=== PATIENT | male | born 1980 | race Caucasian/White ===

== ENCOUNTER 2017-06-26 05:43 | Day surgery (SDC) | payer OTHER ==
[2017-06-26] MEDS ORDERED: ACETAMINOPHEN 500 MG TAB PO ONE (05:58)
[2017-06-26] MEDS ORDERED: GABAPENTIN 300 MG CAP PO ONE (05:58)
[2017-06-26] MEDS ORDERED: ceFAZolin 2 GM/SWFI 2 GM/20 ML SYR IVP ONE (05:58)
[2017-06-26] MEDS ORDERED: LR 1,000 ML IV ONE (05:59)
[2017-06-26] MEDS ORDERED: LIDOCAINE 1% 2 ML INJ ID PRN (05:59)
--- NOTE | 2017-06-26 06:31 | PDHPUP ---
History & Physical Update H&P update statement: This history and physical update is based on an assessment of the patient which was completed after admission or registration (within 24 hours), but prior to the surgery/procedure. H&P update: H&P reviewed & patient examined, no change in patient's condition since H&P completed
[2017-06-26] MEDS ORDERED: BUPIVACAINE 0.25% 30 ML SDV ONE ×2 (06:44→08:01)
[2017-06-26] MEDS ORDERED: CHLORHEXIDINE GLUC HIBICLENS 118 ML BTL TP ONE (06:44)
[2017-06-26] MEDS ORDERED: DEPO METHYLPREDNISOLONE 40 MG/ML SDV ONE (06:45)
[2017-06-26] MEDS ORDERED: BACITRACIN 50,000 UNITS/10 ML SYR IRR ONE (06:45)
[2017-06-26] MEDS ORDERED: THROMBIN (BOVINE) 5,000 UNIT VIAL TP ONE (06:45)
--- NOTE | 2017-06-26 07:01 | PDANEPAE ---
ANE History of Present Illness 36 year old male for lumbar discectomy. ANE Past Medical History - Cardiovascular History Hx Hypertension: No Hx Arrhythmias: No Hx Chest Pain: No Hx Coronary Artery / Peripheral Vascular Disease: No Hx CHF / Valvular Disease: No Hx Palpitations: No - Pulmonary History Hx COPD: No Hx Asthma/Reactive Airway Disease: No Hx Recent Upper Respiratory Infection: No Hx Oxygen in Use at Home: No Hx Sleep Apnea: No Sleep Apnea Screening Result - Last Documented: Positive - Neurologic History Hx Cerebrovascular Accident: No Hx Seizures: No Hx Dementia: No - Endocrine History Hx Diabetes: No Hypothyroid: No Hyperthyroid: No Obesity: mild - Renal History Hx Renal Disorders: No - Liver History Hx Hepatic Disorders: No - Neurological & Psychiatric Hx Hx Neurological and Psychiatric Disorders: No - Cancer History Hx Cancer: Yes Cancer History Comment: 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 RT KNEE SCOPE 2015. BONE MARROW HARVEST 2000. AND TRANSPLANT. MEDIASTINAL BX 1999 ANE Review of Systems Review of systems is: negative Review of Systems: - Exercise capacity Exercise capacity: >=4 METS METS (RN): 5 METS ANE Patient History - Allergies Allergies/Adverse Reactions: No Known Allergies Allergy (Unverified 02/08/14 16:13) - Home Medications Home medications: home medication list seen and reviewed Home Medications: IBUPROFEN PRN 06/18/17 [Last Taken 06/18/17] - NPO status NPO Status: no food or drink >8 hours NPO Since - Liquids (Date): 06/25/17 NPO Since - Liquids (Time): 22:00 NPO Since - Solids (Date): 06/25/17 NPO Since - Solids (Time): 21:00 - Anes Hx Anes Hx: post operative nausea and vomiting - Smoking Hx Smoking Status: Never smoked Marijuana use: No - Alcohol Use Alcohol Use: Rarely - Family Anes Hx Family Anes Hx: neg - N/A ANE Labs/Vital Signs - Vital Signs Vital Signs: reviewed preoperatively; see RN documention for details Blood Pressure: 117/75 Heart Rate: 67 Respiratory Rate: 18 O2 Sat (%): 95 Height: 182.88 cm Weight: 122.47 kg ANE Physical Exam - Airway Neck exam: FROM Mallampati Score: Class 1 Mouth exam: normal dental/mouth exam, hodges - Pulmonary Pulmonary: no respiratory distress - Cardiovascular Cardiovascular: regular rate and rhythym - ASA Status ASA Status: II ANE Anesthesia Plan Anesthesia Plan: general endotracheal anesthesia Total IV Anesthesia: No
[2017-06-26] MEDS ORDERED: MIDAZOLAM 2 MG/2 ML VIAL IVP ONE (07:03)
[2017-06-26] MEDS ORDERED: REMIFENTANIL HCL 1 MG VIAL ONE ×2 (07:07→08:45)
[2017-06-26] MEDS ORDERED: fentaNYL 100 MCG/2 ML INJ ONE ×2 (07:08→10:05)
[2017-06-26] MEDS ORDERED: PROPOFOL/EMULSION 500 MG/50 ML BOTTLE IV ONE ×2 (07:08→08:44)
[2017-06-26] MEDS ORDERED: PROPOFOL 200 MG/20 ML VIAL ONE (07:08)
[2017-06-26] MEDS ORDERED: SCOPOLAMINE HYDROBROMIDE 1 MG/3 DAYS PATCH TD SCH (07:15)
[2017-06-26] MEDS ORDERED: LIDOCAINE 2% 5 ML SDV ONE (07:16)
[2017-06-26] MEDS ORDERED: ROCURONIUM 50 MG/5 ML VIAL ONE (07:16)
[2017-06-26] MEDS ORDERED: ONDANSETRON 4 MG/2 ML VIAL ONE ×2 (07:20→11:19)
[2017-06-26] MEDS ORDERED: DEXAMETHASONE 4 MG/ML VIAL ONE (07:20)
[2017-06-26] MEDS ORDERED: LR 500 ML IV PRN (08:35)
[2017-06-26] MEDS ORDERED: NALOXONE HCL 0.4 MG/ML INJ IVP PRN (08:35)
[2017-06-26] MEDS ORDERED: HYDROmorphONE/DILAUDID 1 MG/ML INJ IVP PRN (08:35)
[2017-06-26] MEDS ORDERED: OXYCODONE/APAP 5/325 TAB PO PRN (08:35)
[2017-06-26] MEDS ORDERED: ONDANSETRON 4 MG/2 ML VIAL IVP PRN (08:35)
[2017-06-26] MEDS ORDERED: PHENYLEPHRINE HCL 100 MCG/ML SYR IVP PRN (08:35)
[2017-06-26] MEDS ORDERED: epHEDrine SULFATE 10 MG/ML SYR IVP PRN (08:35)
[2017-06-26] MEDS ORDERED: SUGAMMADEX SODIUM 200 MG/2 ML VIAL IVP ONE (08:41)
--- NOTE | 2017-06-26 10:01 | SOAPPROG ---
SOAP Progress Note Assessment/Plan: Post Op Visit: S: Awake and alert. Pt with expected lower back pain O: AFVSS/PERRLA/EOMI no droop CN 2-12 grossly intact +lt touch 5/5 BUE/BLE = CDI A/P: 36 yo male that is s/p left L4/5 CONSTANCE -orders in place -call with any questions or concerns -dc once criteria is met -pt seen by Dr Andre as well 06/26/17 09:58 Objective: Vital Signs Temp Pulse Resp BP Pulse Ox 36.6 C 67 18 117/75 95 06/26/17 07:02 06/26/17 07:02 06/26/17 07:02 06/26/17 07:02 06/26/17 07:02 ICD10 Worksheet Patient Problems: Problems Problem Status Onset Lumbar herniated disc Acute Lumbar radicular pain Acute Lumbar stenosis Acute - ICD10 Problem Qualifiers (1) Lumbar stenosis (2) Lumbar radicular pain (3) Lumbar herniated disc
[2017-06-26] MEDS: fentaNYL 100 MCG/2 ML INJ IVP PRN ×2 (10:05→10:31)
--- NOTE | 2017-06-26 10:51 | GOP ---
[f rep st] OPERATIVE REPORT DATE OF OPERATION: SURGEON: Keith Andre MD MANAGER TRANSPORT: Leonardo Saez PA-C. PREOPERATIVE DIAGNOSIS: Large herniated disk at L4-5 with left L5 radiculopathy. POSTOPERATIVE DIAGNOSIS: Large herniated disk at L4-5 with left L5 radiculopathy. PROCEDURE PERFORMED: Left L4-5 microdiskectomy. FINDINGS: ESTIMATED BLOOD LOSS: 25 mL. DESCRIPTION OF PROCEDURE: The patient was taken to the operating room, placed in the supine position , and general anesthesia was begun. He was flipped prone onto a Brandon frame. Care was taken to pad all points of contact. His back was sterilely prepped and draped in the usual fashion. A 1-inch in cision (2.5 cm incision) was made in the midline above the L4-5 interspace. The subcutaneous tissue was dissected using Bovie cautery down to the fascia, and a left-sided subperiosteal dissection was m eloy down to the left L4-5 lamina. A self-retaining retractor was placed. The operating microscope w as introduced. A localizing x-ray was taken. We drilled a left L4-5 hemilaminotomy with a slight me dial facetectomy and a slight rostral L5 laminotomy. We decompressed the L5 nerve root flush with th e L5 pedicle and followed the nerve root up to the L4-5 disk space. We swept the nerve root medially . Underneath the nerve was, effectively, a free fragment of disk. The anulus was completely disrupt ed here. We cauterized some epidural veins over the disk fragment itself and divided these epidural veins and then used a ball-tip probe to deliver a large ventral mass out from underneath the thecal s ac. We took pictures of it. It measures just over 3 cm in length and about a centimeter across, and was a rather large fragment. Thecal sac and the L5 nerve root relaxed nicely. We then took a pitui tary and removed some additional small loose pieces of disk within the L4-5 disk itself, but we did n ot perform radical microdiskectomy. We took the ball-tip probe and swept it under the thecal sac, an d there was some persistent bulging of the L4-5 anulus. We pushed on this material, and there was re ally no additional nucleus polyposis underneath the remnant of the anulus centrally. We then irrigat ed the disk with large amounts of antibiotic saline, cut some additional small fragments out in the p rocess, and then placed Gel-Foam with Depo-Medrol on it over the left L5 root. We then closed the in cision in multiple layers using Vicryl sutures. Steri-Strips were applied to the skin. The patient was reversed from anesthesia, extubated, and transferred to the recovery room in stable condition. T here were no complications. COMPLICATIONS: None. INDICATIONS FOR THE PROCEDURE: The patient is a 36-year-old male who has had some problems with his low back for the last several years, including MRI from back in 2012 that demonstrated multilevel taylor ular tears and bulging of disks at L3-4, 4-5, and 5-1. He had an acute left L5 radiculopathy that wa s unresponsive to conservative measures and a large L4-5 disk, on his May MRI this past year dem onstrating compression of the left L5 nerve root. Surgery was offered to him. The risk of recurrent disk herniation, including the risk as high as 10%, or even slightly more, was discussed. He knew t here was risk of ongoing discomfort, failure of the surgery, nerve injury, spinal fluid leak and the possible need for more extensive surgery, but he understood that, in general, a lumbar microdiskectom y tends to be a very safe and effective procedure. He accepted the risks of the procedure and he did want to proceed. /[id number]/MODL
[2017-06-26 11:03] VITALS: PULSE 68; RESP 16
[2017-06-26 12:00] VITALS: BP 120/60; O2SAT 95
[2017-06-26 12:21] VITALS: TEMP 97.9
--- NOTE | 2017-06-26 16:06 | POSTANESTH ---
Post Anesthetic Evaluation Cardiovascular Status: Normal, Stable, Similar to Pre-Op Cond Respiratory Status: Normal, Stable, Similar to Pre-op Cond. Level of Consciousness/Mental Status: Can Participate in Eval, Alert and Oriented Pain Control: Adequate, Prn Tx Ordered Nausea/Vomiting Control: Adequate, Prn Tx Ordered Complications Possibly Related to Anesthesia: None Noted
[2017-06-29] MEDS ORDERED: PATCH REMOVAL 1 EA PATCH TD SCH (07:03)
== END 2017-06-26 12:22 | disposition home or self-care (01) ==
LOC: FSGY 05:43
PROVIDERS: ATTEND Neurological Surgery
DX: M51.27 Other intervertebral disc displacement, lumbosacral region (principal); M54.16 Radiculopathy, lumbar region
CPT/HCPCS: J0171; J0690; J1030; J1100; J2250; J2405; J2704; J3010